=== PATIENT | female | born 1940 | race Caucasian/White ===

== ENCOUNTER 2017-06-03 11:55 | Emergency (ER) | payer OTHER ==
[~2017-06-03] VITALS: Ht 160 cm; Wt 72.0 kg
[~2017-06-03 11:55] MED LIST: ALEN70 PO; ASPI81 PO; CALC600T34 PO; CENTTAB9 PO; FISH1000 PO; PAXI20TA26 PO; TIMO0.5S6 OU; VITA400C28 PO; ZOCO40TA PO
[2017-06-03 12:15] VITALS: BP 151/67; PULSE 84; RESP 16; TEMP 97.9; O2SAT 96
[2017-06-03] MEDS ORDERED: SIMV40TA PO (12:47)
[2017-06-03] MEDS ORDERED: TIMO0.5S5 EACH EYE (12:47)
[2017-06-03] MEDS ORDERED: ALPR.5 PO (12:47)
[2017-06-03] MEDS ORDERED: PAXI10TA2 PO (12:47)
--- NOTE | 2017-06-03 13:08 | PD ---
HPI Chief Complaint: Injury Time Seen by Provider: 12:46 Travel History International Travel<30 days: No Contact w/Intl Traveler<30days: No Traveled to known affect area: No History of Present Illness HPI 77-year-old female presents to the emergency room for evaluation of right ankle pain and swelling for the past week. Patient states she was changing her grandson's diaper on her hands and knees when she accidentally everted her ankle. She had immediate pain. States over the week she continued to have swelling, bruising, and pain. Pain is localized to the right lateral malleolus. The swelling and bruising have gone away but the pain is persistent and worse. Patient has been limping on her ankle. She has been taking Aleve without significant relief in symptoms. Denies paresthesias. PFSH Past Medical History Depression: Yes High Cholesterol: Yes Diminished Hearing: No Glaucoma: Yes Immunizations Current: Yes Tetanus Vaccination: < 5 Years Influenza Vaccination: Yes ?: Not Past Surgical History Surgical History: No Previous Surgery Social History Alcohol Use: Yes (OCC) Tobacco Use: No Substance Use: No Allergies-Medications (Allergen,Severity, Reaction): Coded Allergies: No Known Allergies (Verified , 06/03/17) Reported Meds & Prescriptions Reported Meds & Active Scripts Active Walker/Adult/Folding (Device) 1 Mis Mis Ea .ROUTE DIRECTED Reported Paxil (Paroxetine HCl) 10 Mg Tab 20 Mg PO DAILY Timoptic Opth Drops (Timolol Opth Drops) 0.5 % Soln 1 Drop EACH EYE BID Xanax (Alprazolam) 0.5 Mg Tab 0.5 Mg PO HS PRN Simvastatin 40 Mg Tab 40 Mg PO HS Review of Systems Except as stated in HPI: all other systems reviewed are Neg Physical Exam Narrative GENERAL: Well-nourished, well-developed female in no acute distress. Afebrile. Ambulatory. SKIN: Focused skin assessment warm/dry. Moderate ecchymosis of the right heel and bottom of the foot. HEAD: Normocephalic. EYES: No scleral icterus. No injection or drainage. NECK: Supple, trachea midline. No JVD or lymphadenopathy. CARDIOVASCULAR: Regular rate and rhythm without murmurs, gallops, or rubs. RESPIRATORY: Breath sounds equal bilaterally. No accessory muscle use. MUSCULOSKELETAL: No cyanosis. Moderate edema of the right ankle. Extreme tenderness to palpation over the lateral malleolus. Positive squeeze test. 2+ dorsalis pedis pulse. Less than 2 second capillary refill distally. Distal sensation intact. Limited range of motion secondary to pain. No bony tenderness to palpation of the foot. Data Data Last Documented VS Vital Signs Date Time Temp Pulse Resp B/P (MAP) Pulse Ox O2 Delivery O2 Flow Rate FiO2 06/03/17 12:15 97.9 84 16 151/67 (95) 96 Orders Orders Ankle, Complete ([id number]) (06/03/17 ) Splint Or Brace Apply/Monitor (06/03/17 13:30) [facility] Medical Decision Making Medical Screen Exam Complete: Yes Emergency Medical Condition: Yes Medical Record Reviewed: Yes Differential Diagnosis Fracture, sprain, strain, dislocation Narrative Course 77-year-old female presents to the emergency room for evaluation of right ankle pain and swelling for the past week. Patient everted her ankle one week ago and has had persistent, worsening pain since then. She has been ambulatory since onset. States edema and ecchymosis has decreased. Right lower extremity is neurovascularly intact with 2+ dorsalis pedis pulse. No bony tenderness to palpation of the foot. There is tenderness to palpation of the lateral malleolus. There is moderate edema. X-ray is negative for acute bony abnormality. This is likely ankle sprain. Patient placed in ankle stirrup and discharged with prescription for a walker. Told to follow up with primary care physician if symptoms persist or return for worsening symptoms. She understands and agrees to plan. Diagnosis Primary Impression: Right ankle sprain Qualified Codes: S93.401A - Sprain of unspecified ligament of right ankle, initial encounter Referrals: Primary Care Physician Additional Instructions: Rest and drink plenty of fluids. Take Tylenol as directed, as needed for pain. Apply ice to the affected area for 20 minutes at a time, as needed for pain and swelling. Follow-up with a primary care physician. Return to the emergency room for worsening symptoms. Scripts Walker/Adult/Folding (Walker/Adult/Folding) 1 Mis Mis EA .ROUTE DIRECTED, #1 0 Refills Prov: Jon Soto MD 06/03/17 Disposition: 01 DISCHARGE HOME Condition: Stable Zita Mendoza Jun 03, 2017 13:08
--- NOTE | 2017-06-03 13:23 | RADRPT ---
EXAM DATE/TIME: 06/03/2017 13:11 [place] COMPARISON: No previous studies available for comparison. INDICATIONS : Twist injury right ankle 1 week ago, has pain MEDICAL HISTORY : None. SURGICAL HISTORY : None. ENCOUNTER: Initial ACUITY: 1 week PAIN SCORE: 8/10 LOCATION: Right ankle FINDINGS: Three view exam was performed of the right ankle. The bony structures are in normal alignment. Soft tissue swelling lateral malleolus. The ankle mortise is intact. No radiopaque foreign bodies are s een. Bony mineralization is normal. CONCLUSION: Soft tissue swelling lateral side, negative for fracture. Beau Jones MD FACR on June 03, 2017 at 13:21 Board Certified Radiologist. This report was verified electronically.
[2017-06-03] MEDS ORDERED: WALKER/ADULT/FO1 MIS (13:31)
== END 2017-06-03 14:10 | disposition home or self-care (01) ==
LOC: PHEFT 11:55
DX: S93.401A Sprain of unspecified ligament of right ankle, initial encounter (principal); X58.XXXA Exposure to other specified factors, initial encounter; E78.00 Pure hypercholesterolemia, unspecified
CPT/HCPCS: 73610; 99283; L1906

== ENCOUNTER 2018-02-14 17:35 | Observation (INO) | END 2018-02-15 18:51 | disposition home or self-care (01) | DX: G45.9 Transient cerebral ischemic attack, unspecified (principal); I16.1 Hypertensive emergency; R29.702 NIHSS score 2; E78.00 Pure hypercholesterolemia, unspecified; H40.9 Unspecified glaucoma; F41.9 Anxiety disorder, unspecified; E78.5 Hyperlipidemia, unspecified; R20.0 Anesthesia of skin; T38.0X5A Adverse effect of glucocorticoids and synthetic analogues, initial encounter; T39.315A Adverse effect of propionic acid derivatives, initial encounter; Z79.82 Long term (current) use of aspirin; I95.9 Hypotension, unspecified | CPT/HCPCS: 70450; 70544; 70551; 80048; 80061; 80307; 81001; 82550; 83036; 84484; 84702; 85025; 85384; 85610; 85730; 86850; 86900; 86901; 87641; 92610; 93005; 93306; 93880; 96365; 96366; 96372; 96375; 97162; 97167; 99291; G0378; G8987; G8988; G8996; G8997; G8998; J1644; J2060; J7030; J7050 ==